=== PATIENT | female | born 1980 | race Asian ===

== ENCOUNTER 2019-03-25 07:25 | Inpatient (IN) | payer BC ==
[2019-03-25] MEDS: ELECTROLYTE-148 SOLN 1,000 ML IV SCH (07:40)
[2019-03-25 08:08] VITALS: BMI 26.9
[2019-03-25] MEDS ORDERED: CITRIC ACID/SODIUM CITRATE 30 ML UNIT-DOSE CUP PO ONE (08:13)
[2019-03-25] MEDS ORDERED: OXYTOCIN 20 UNITS in 0.9% NS 20 UNIT/1,000 ML INFUS.BAG IV ONE ×2 (09:10→10:38)
[2019-03-25] MEDS ORDERED: morphine SULFATE/PF 0.5 MG/ML (2cc Syringe - QUVA) ONE (09:14)
[2019-03-25] MEDS ORDERED: PHENYLEPHRINE HCL 10 MG/1 ML SINGLE DOSE VIAL ONE (09:14)
--- NOTE | 2019-03-25 09:15 | HP ---
Past Medical History - Primary Care Physician PCP:: Murtaza Giraldo - Admission Chief Complaint: 39 weeks ,previous c/s, sterlization History of Present Illness: 39 yo f 0 2 1 with previous c/s , requesting repeat c/s, risks associated with c/s discussed , cx CLP, vx -3 , mi , fhr cat 1.no contraction. also requesting BTL, aware procedure is permanent and has small failure risks and risks of ectopic. History Source: Patient Limitations to Obtaining History: No Limitations - Past Medical History ...: 4 ...Para: 2 ...Term: 2 ...: 0 ...Spon : 1 ...Induced : 0 ...LMP: 06/19/18 ... Weeks Gestation by Dates: 39.6 ...EDC by Dates: 03/26/19 ...EDC by Sono: 03/29/19 Endocrine: Yes: Diabetes Mellitus (GDM) - Past Surgical History Past Surgical History: Yes: None, Hx Myomectomy: No Hx Transabdominal Cerclage: No - Smoking History Smoking history: Never smoked Have you smoked in the past 12 months: No Aproximately how many cigarettes per day: 0 - Alcohol/Substance Use Hx Alcohol Use: No History of Substance Use: reports: None - Social History Usual Living Arrangement: Yes: With Spouse ADL: Independent Occupation: RN History of Recent Travel: No Home Medications - Allergies Allergies/Adverse Reactions: Allergies Allergy/AdvReac Type Severity Reaction Status Date / Time No Known Allergies Allergy Verified 03/25/19 08:10 - Home Medications Home Medications: Ambulatory Orders Vit/Iron Fum/Folic AC [ Tablet] 1 each PO DAILY 09/02/15 Review of Systems - Review of Systems Constitutional: reports: No Symptoms Eyes: reports: No Symptoms HENT: reports: No Symptoms Neck: reports: No Symptoms Cardiovascular: reports: No Symptoms Respiratory: reports: No Symptoms Gastrointestinal: reports: No Symptoms Genitourinary: reports: No Symptoms Breasts: reports: No Symptoms Reported Musculoskeletal: reports: No Symptoms Integumentary: reports: No Symptoms Neurological: reports: No Symptoms Endocrine: reports: No Symptoms Hematology/Lymphatic: reports: No Symptoms Psychiatric: reports: No Symptoms Physical Exam - Maternity Vital Signs: Vital Signs Temperature 98.3 F 03/25/19 07:25 Pulse Rate 86 03/25/19 07:25 Respiratory Rate 18 03/25/19 07:25 Blood Pressure 129/83 03/25/19 07:25 O2 Sat by Pulse Oximetry (%) Constitutional: Yes: Well Nourished, No Distress, Calm Eyes: Yes: WNL, Conjunctiva Clear, EOM Intact HENT: Yes: WNL, Atraumatic, Normocephalic Neck: Yes: WNL, Supple, Trachea Midline Cardiovascular: Yes: WNL, Regular Rate and Rhythm Breast(s): Yes: WNL - Abdominal Exam/OB Number of Fetuses: Single Presentation: Vertex Contractions: No Intensity: Unaware Monitor Mode: External Heart Rate Location: [facility] Category: I Accelerations: Non-Uniform Decelerations: None - Vaginal Exam/OB Vaginal Bleediing: No Speculum Exam: No Dilatation (cm): closed Effacement (%): 0 Amniotic Membrane Status: Intact Presentation: Vertex/Position Station: -3 - Physical Exam Musculoskeletal: Yes: WNL Extremities: Yes: WNL Edema: Yes Edema: LLE: Trace, RLE: Trace Deep Tendon Reflex Grade: Normal +2 Psychiatric: Yes: WNL Hemorrhage Risk Assessment - Risk Factors Medium Risk Factors: Yes: Prior , uterine surgery,or multiple laparotomies Risk Score: 1 Risk Level: Medium Risk Problem List - Problems (1) with 39 completed weeks gestation Code(s): Z3A.39 - 39 WEEKS GESTATION OF (2) Previous section complicating Code(s): O34.219 - MATERNAL CARE FOR UNSP TYPE SCAR FROM PREVIOUS DEL (3) Advanced maternal age (AMA) in Code(s): RAG4983 - (4) Sterilization Code(s): Z30.2 - ENCOUNTER FOR STERILIZATION Assessment/Plan admit for repeat c/s and BTL. risks discussed
[2019-03-25] MEDS ORDERED: ceFAZolin SODIUM 1 GM VIAL ONE ×2 (09:16)
[2019-03-25] MEDS ORDERED: ONDANSETRON 4 MG/2 ML VIAL IVPUSH PRN (09:29)
[2019-03-25] MEDS ORDERED: IBUPROFEN 600 MG TABLET (FP) PO PRN (09:29)
[2019-03-25] MEDS ORDERED: oxyCODONE HCL 5 MG TABLET PO PRN ×2 (10:23)
[2019-03-25] MEDS ORDERED: METHYLERGONOVINE MALEATE 0.2 MG/1 ML AMP IM PRN (10:23)
[2019-03-25] MEDS ORDERED: diphenhydrAMINE HCL 25 MG CAPSULE (FP) PO PRN (10:23)
[2019-03-25] MEDS ORDERED: BENZOCAINE 28 GM HEMORRHOIDAL OINTMENT PR PRN (10:23)
[2019-03-25] MEDS ORDERED: WITCH HAZEL 50% (TUCKS) 40 PAD/JAR PAD TP PRN (10:23)
[2019-03-25] MEDS ORDERED: BENZOCAINE 20% 57 GM BOTTLE TP PRN (10:23)
[2019-03-25] MEDS ORDERED: ACETAMINOPHEN 325 MG TABLET (FP) PO PRN (10:24)
--- NOTE | 2019-03-25 10:29 | OP ---
Operative Note - Note: Operative Date: 03/25/19 Pre-Operative Diagnosis: khushbu Operation: repeat LST c/s, BTL Findings: live baby girl 9/9 , ROT.clear fluid. Surgeon: Murtaza Giraldo Cremator: Yair Dillard Anesthesiologist/REGIONAL DIRECTOR OF ADMISSIONS: Sukhdeep Rock Anesthesia: Spinal Specimens Removed: placenta, portion Rt and LT tube Estimated Blood Loss (mls): 500 Drains & Tubes with Location: [place] Blood Volume Replaced (mls): 0 Operative Report Dictated: Yes
[2019-03-25] MEDS ORDERED: OXYTOCIN 20 UNITS in 0.9% NS 20 UNIT/1,000 ML INFUS.BAG IV SCH (10:30)
[2019-03-25] MEDS ORDERED: ACETAMINOPHEN 500 MG TABLET (FP) ONE (10:37)
[2019-03-25] MEDS: IBUPROFEN 800 MG/8 ML IJ IVPB PRN ×2 (14:17→21:55)
[2019-03-25] MEDS ORDERED: DEXTROSE 5%-LACTATED RINGERS 1,000 ML IV SCH (18:30)
--- NOTE | 2019-03-25 18:57 | OP ---
DATE OF OPERATION: 03/25/2019 PREOPERATIVE DIAGNOSIS: 39 weeks, previous section with request of repeat section and tubal ligation. POSTOPERATIVE DIAGNOSIS: 39 weeks, previous section with request of repeat section and tubal ligation. PROCEDURE: Repeat low segment transverse resection and bilateral tubal ligation. SURGEON: Murtaza Odom M.D. APPLICATIONS ARCHITECT: Roro Mccray ANESTHESIA: Spinal. ANESTHESIOLOGIST: Sukhdeep Rock M.D. ESTIMATED BLOOD LOSS: 500 mL. FINDINGS: A live baby girl, ROT position, Apgars 9 and 9, clear fluid. OPERATION: Patient was taken to operating room with adequate spinal anesthesia. Abdomen and perineum were prepped and draped. Pfannenstiel abdominal skin incision was made. Abdominal wall was cut layer by layer until the peritoneum was exposed and incised. Upon entering the abdominal cavity, the lower uterine segment was identified, and uterovesical fold of the peritoneum was established. The bladder was pushed down. A low transverse incision was made. Amniotic sac was entered. Clear fluid. Head delivered ROT position. Nasopharynx was suctioned. A live baby girl was delivered, Apgars 9 and 9. Placenta was delivered manually. Uterine cavity was cleared of all remaining tissue. Uterine incision was closed in 2 layers, the 1st layer with 0 Biosyn continuous suture, the 2nd layer with 0 Biosyn imbricating the 1st layer. Bladder flap was closed with 0 Biosyn continuous suture. Both tubes and ovaries were checked and were normal. Right tube was grasped with [place] clamps. Right tube was doubly tied with 2-0 plain. Portion of tube was removed, and endosalpinx was cauterized. The same procedure was repeated for opposite tube. No active bleeding was seen. All the lap, sponge, and instrument counts were correct. Pelvic cavity irrigated. And then the peritoneum was closed with 0 Biosyn continuous suture. Muscles were brought together with interrupted suture with 0 Biosyn. Fascia was closed with 0 Biosyn continuous sutures. Subcutaneous fat with interrupted sutures 0 Biosyn, and the skin was closed with 3-0 Vicryl subcuticular continuous suture. The patient tolerated the procedure well and left the OR in good condition. MURTAZA ODOM M.D. [id number]
[2019-03-25] MEDS: CEFAZOLIN 1 GM/D5W 1 GM/50 ML BAG IVPB SCH (19:28)
[2019-03-26] MEDS: CEFAZOLIN 1 GM/D5W 1 GM/50 ML BAG IVPB SCH (03:00)
[2019-03-26] MEDS: IBUPROFEN 800 MG/8 ML IJ IVPB PRN (05:22)
--- NOTE | 2019-03-26 07:35 | PN ---
Post Progress Note - Subjective Subjective: Patient without acute complaints. Reports tolerating oral intake without nausea or vomiting. Ambulating without dizziness. Denies fevers or chills. Pain well controlled with oral pain medication. without difficulty. Passing flatus. Post Day: 1 Type of Delivery: Repeat C/S Vital Signs: Vital Signs Temperature 98.3 F 03/26/19 04:00 Pulse Rate 90 03/26/19 04:00 Respiratory Rate 18 03/26/19 05:59 Blood Pressure 119/69 03/26/19 04:00 O2 Sat by Pulse Oximetry (%) 98 03/25/19 11:30 Breast Exam: Yes: Soft Uterus: Yes: Fundus Firm Incision: Yes: Dressing dry and intact Abdomen/GI: Yes: Abdomen soft, Abdominal Distention (mild soft), Tender (mild incisional), Passing flatus, Tolerating PO Lochia: Yes: Rubra Lochia, amount: Moderate Extremities: Yes: Calves non-tender, Edema (trace) Activity: Ambulating Assessment/Plan 39 yo POD # 1 s/p R CD + BTL, afebrile, vital signs stable, doing well 1. Continue routine postoperative care. 2. Follow up AM CBC 3. Rh positive status, no rhogam indicated. 4. Encourage ambulation and incentive spirometer use 5. Continue oral pain medication 6. Anticipate discharge home postoperative day #3 or #4
[2019-03-26 07:47] LABS: BASO % 0.5 % (0-2.0); EOS % 1.6 % (0-4.5); HEMATOCRIT 34.1 % (32.4-45.2); HEMOGLOBIN 11.5 GM/dL (10.7-15.3); LYMPH % 11.2 % (8-40); MCH 28.2 pg (25.7-33.7); MCHC 33.8 g/dl (32.0-36.0); MEAN CELL VOLUME 83.4 fl (80-96); MEAN PLT VOLUME 8.2 fl (7.5-11.1); MONO % 4.5 % (3.8-10.2); NEUT % 82.2 % (42.8-82.8); PLATELET COUNT 183 K/MM3 (134-434); RBC 4.09 M/mm3 (3.60-5.2); RDW 15.9 % (11.6-15.6); WHITE BLOOD COUNT 8.4 K/mm3 (4.0-10.0)
[2019-03-26] MEDS: ACETAMINOPHEN 325 MG TABLET (FP) PO PRN ×3 (09:43→20:29)
[2019-03-26] MEDS: ENOXAPARIN NA (PORCINE) 40 MG/0.4 ML DISP.SYRIN SQ SCH (09:43)
[2019-03-26] MEDS ORDERED: DIPHTH,PERTUSS(ACELL),TET 0.5 ML DISP.SYRIN IM ONE (10:00)
[2019-03-26] MEDS ORDERED: BISACODYL 10 MG SUPP.RECT RC PRN (10:23)
--- NOTE | 2019-03-26 12:23 | PN ---
Progress Note (short form) - Note Progress Note: POD 1 s/p under spinal anesthesia with duramorph. Doing well, no complaints, all questions answered.
[2019-03-26] MEDS: IBUPROFEN 600 MG TABLET (FP) PO PRN ×2 (13:21→20:30)
[2019-03-26] MEDS: SIMETHICONE 80 MG TAB.CHEW (FP) PO PRN (20:29)
[2019-03-27] MEDS: IBUPROFEN 600 MG TABLET (FP) PO PRN ×3 (05:30→21:04)
[2019-03-27] MEDS: SIMETHICONE 80 MG TAB.CHEW (FP) PO PRN ×3 (05:30→21:04)
[2019-03-27] MEDS: ACETAMINOPHEN 325 MG TABLET (FP) PO PRN ×3 (05:32→21:04)
--- NOTE | 2019-03-27 07:20 | PN ---
Progress Note (short form) - Note Progress Note: pod 2 s/p repeat c/s , no c/o , passing gas CBC, BMP 03/26/19 07:20 Last Vital Signs Temp Pulse Resp BP Pulse Ox 98.5 F 98 H 20 102/52 L 98 03/26/19 20:00 03/26/19 20:00 03/26/19 20:00 03/26/19 20:00 03/25/19 11:30 abdomen soft, no distension, no cva incision dry, clean no calf tenderness lochia mild plan ambulate , cbc in am pain management Problem List - Problems (1) with 39 completed weeks gestation Code(s): Z3A.39 - 39 WEEKS GESTATION OF (2) Previous section complicating Code(s): O34.219 - MATERNAL CARE FOR UNSP TYPE SCAR FROM PREVIOUS DEL (3) Advanced maternal age (AMA) in Code(s): LSK0313 - (4) Sterilization Code(s): Z30.2 - ENCOUNTER FOR STERILIZATION
[2019-03-27] MEDS: ENOXAPARIN NA (PORCINE) 40 MG/0.4 ML DISP.SYRIN SQ SCH (09:57)
[2019-03-27] MEDS ORDERED: SENNOSIDES/DOCUSATE COMBO (SENNA PLUS) TABLET (UD) PO PRN (22:00)
[2019-03-28] MEDS: IBUPROFEN 600 MG TABLET (FP) PO PRN ×3 (05:29→16:14)
[2019-03-28 08:39] LABS: BASO % 0.4 % (0-2.0); EOS % 3.7 % (0-4.5); HEMATOCRIT 35.4 % (32.4-45.2); HEMOGLOBIN 11.7 GM/dL (10.7-15.3); LYMPH % 16.6 % (8-40); MCH 28.2 pg (25.7-33.7); MCHC 33.1 g/dl (32.0-36.0); MEAN CELL VOLUME 85.1 fl (80-96); MONO % 3.6 % (3.8-10.2); NEUT % 75.7 % (42.8-82.8); PLATELET COUNT 238 K/MM3 (134-434); RBC 4.16 M/mm3 (3.60-5.2); RDW 15.6 % (11.6-15.6); WHITE BLOOD COUNT 9.1 K/mm3 (4.0-10.0)
--- NOTE | 2019-03-28 09:54 | PN ---
Post Progress Note - Subjective Subjective: Patient without acute complaints. Reports tolerating oral intake without nausea or vomiting. Ambulating without dizziness. Denies fevers or chills. Pain well controlled with oral pain medication. Pumping/breast feeding without issue. Passing flatus. Post Day: 3 Type of Delivery: Repeat C/S Vital Signs: Vital Signs Temperature 98.0 F 03/27/19 22:00 Pulse Rate 88 03/27/19 22:00 Respiratory Rate 18 03/27/19 22:00 Blood Pressure 119/69 03/27/19 22:00 O2 Sat by Pulse Oximetry (%) 98 03/25/19 11:30 Breast Exam: Yes: Soft Uterus: Yes: Fundus Firm, Fundus below umbilicus Incision: Yes: Sutures intact, Other (clean and dry) Abdomen/GI: Yes: Abdomen soft, Passing flatus, Tolerating PO Lochia: Yes: Rubra Lochia, amount: Small Extremities: Yes: Calves non-tender Perineum: Yes: Intact Activity: Ambulating - Labs Labs: CBC WBC 9.1 K/mm3 (4.0-10.0) 03/28/19 08:00 RBC 4.16 M/mm3 (3.60-5.2) 03/28/19 08:00 Hgb 11.7 GM/dL (10.7-15.3) 03/28/19 08:00 Hct 35.4 % (32.4-45.2) 03/28/19 08:00 MCV 85.1 fl (80-96) 03/28/19 08:00 MCH 28.2 pg (25.7-33.7) 03/28/19 08:00 MCHC 33.1 g/dl (32.0-36.0) 03/28/19 08:00 RDW 15.6 % (11.6-15.6) 03/28/19 08:00 Plt Count 238 K/MM3 (134-434) D 03/28/19 08:00 MPV 8.0 fl (7.5-11.1) 03/28/19 08:00 Absolute Neuts (auto) 6.9 K/mm3 (1.5-8.0) 03/28/19 08:00 Neutrophils % 75.7 % (42.8-82.8) 03/28/19 08:00 Lymphocytes % 16.6 % (8-40) D 03/28/19 08:00 Monocytes % 3.6 % (3.8-10.2) L 03/28/19 08:00 Eosinophils % 3.7 % (0-4.5) D 03/28/19 08:00 Basophils % 0.4 % (0-2.0) 03/28/19 08:00 Nucleated RBC % 0 % (0-0) 03/28/19 08:00 Assessment/Plan 39yo P3 s/p repeat LT C/S, doing well stable, afebrile. care instructions reviewed. Continue routine postop care. Ambulation encouraged.
--- NOTE | 2019-03-28 09:58 | DS ---
Physical Exam-SYSTEMS DEVELOPER Vital Signs: Vital Signs Temperature 98.0 F 03/27/19 22:00 Pulse Rate 88 03/27/19 22:00 Respiratory Rate 18 03/27/19 22:00 Blood Pressure 119/69 03/27/19 22:00 O2 Sat by Pulse Oximetry (%) 98 03/25/19 11:30 Constitutional: Yes: Well Nourished, No Distress, Calm Eyes: Yes: WNL, Conjunctiva Clear HENT: Yes: WNL, Atraumatic, Normocephalic Neck: Yes: WNL, Supple, Trachea Midline Cardiovascular: Yes: WNL, Regular Rate and Rhythm Respiratory: Yes: WNL, Regular, CTA Bilaterally Gastrointestinal: Yes: WNL, Normal Bowel Sounds, Soft ...Rectal Exam: Yes: Deferred Renal/: Yes: WNL External Genitalia: Yes: Normal ....Post : Yes: Uterus firm, Uterus non-tender, Slight lochia rubra Breast(s): Yes: WNL Musculoskeletal: Yes: WNL Extremities: Yes: WNL Edema: No Integumentary: Yes: WNL Wound/Incision: Yes: Clean/Dry, Well Approximated, Sutures Intact Neurological: Yes: WNL, Alert, Oriented ...Motor Strength: WNL Psychiatric: Yes: WNL, Alert, Oriented Labs: CBC, BMP 03/28/19 08:00 Delivery - Delivery Section: Repeat, Low Flap Transverse Type of Anesthesia: Spinal Episiotomy/Laceration: None EBL (cc): 500 Delivery, Single - Stages of Labor Date of Delivery: 03/25/19 Time of Delivery: 09:42 Time Placenta Delivered: 09:43 Placenta: Yes: Manual Removal, Normal Configuration - Condition of Food Service Team Member/Agronomy Professor Present: Yes Name: Alicia Wheatley Gender: Female Weight: 3.062 kg Position: Right, OT Total Hours ROM (Hrs/Mins): 2 minutes - 1 Minute Total Score: 9 5 Minutes Total Score: 9 - Butler Feeding Plan Initial Plan: Exclusive throughout hospitalization Benefits of Exclusively reinforced: Yes Discharge Summary Problems reviewed: Yes Reason For Visit: C SECTION Current Active Problems Advanced maternal age (AMA) in (Acute) with 39 completed weeks gestation (Acute) Previous section complicating (Acute) Sterilization (Acute) Procedures: Principal: Repeat LT C/S Hospital Course: Normal postop recovery Plan of Treatment: Postop and care Condition: Good - Instructions Diet, Activity, Other Instructions: Physical activity Resume your normal everyday activity as tolerated no heavy lifting or exercise until seen by your surgeon. You may walk unlimited vamshi of and climb stairs. You may resume driving the car when you feel safe and comfortable behind the wheel. No sexual activity as instructed. Wound care If you have a bandage, leave it on, and keep dry for 48-72 hours. After that time discard the outer bandage. If they are tapes on the skin under the out of bandage leave them in place. They will peel off in the next 7 to 10 days. Do Not Peel them off. You may shower the day after surgery. If there are tapes present on the skin, you may shower over them. Diet There are no dietary restrictions. Eat healthy, high-fiber foods. Drink 6 to 8 glasses of liquid each day. This will assist in keeping your bowels are regular. Pain management You may take Tylenol or acetaminophen or Ibuprofen (for example, Motrin, Advil etc.) from my pain prescription medication is ordered should be taken as prescribed for moderate to severe pain. Call MD for any of the following: Severe pain not relieved by medication Fever of 101 or higher Excessive bleeding or drainage on dressing Inability to urinate Referrals: Murtaza Giraldo MD [Staff Physician] - Disposition: HOME - Home Medications Comprehensive Discharge Medication List: Ambulatory Orders Vit/Iron Fum/Folic AC [ Tablet] 1 each PO DAILY 09/02/15 Prescription Drug Monitoring Program (I-STOP) results: I-STOP not reviewed
[2019-03-28] MEDS: ACETAMINOPHEN 325 MG TABLET (FP) PO PRN ×2 (10:30→16:13)
[2019-03-28] MEDS: ENOXAPARIN NA (PORCINE) 40 MG/0.4 ML DISP.SYRIN SQ SCH (10:39)
[2019-03-28] MEDS ORDERED: HYDROCORTISONE 1% TOPICAL OINT 30 GM TUBE TP PRN (11:45)
[2019-03-28] MEDS: ELECTROLYTE-148 SOLN 1,000 ML IV SCH (13:30)
[2019-03-28 13:38] VITALS: BP 124/63; PULSE 89; TEMP 98.1
[2019-03-28 14:05] LABS: ANISOCYTOSIS 1+; MACROCYTOSIS 0; OVALOCYTE 1+; PLATELET ESTIMATE NORMAL; TEAR DROP CELLS 1+
[2019-03-28] MEDS: SIMETHICONE 80 MG TAB.CHEW (FP) PO PRN (16:14)
--- NOTE | 2019-04-01 18:59 | PATH ---
Surgical Pathology Report Patient Name: RANDY HAND [facility]. Rec. #: [id number] /Age/Gender: 1980 (Age: 39) / F Account: [id number] Location: [facility] OBS/HEALTH OUTREACH WORKER Taken: 03/25/2019 Received: 03/26/2019 Reported: 04/01/2019 Physicians: Murtaza Giraldo M.D. Specimen(s) Received A: PLACENTA B: FALLOPIAN TUBE PORTION LEFT C: FALLOPIAN TUBE PORTION RIGHT Clinical History 39.3 weeks, , 2010, 2015, SPAB x1, GDM-diet controlled Final Diagnosis A. PLACENTA: THIRD TRIMESTER PLACENTA. TRIVASCULAR CORD. MEMBRANES WITH NO DIAGNOSTIC ABNORMALITIES. B. LEFT PORTION OF FALLOPIAN TUBE, RESECTION: COMPLETE CROSS SECTION OF THE FALLOPIAN TUBE LUMEN IDENTIFIED. C. RIGHT PORTION OF FALLOPIAN TUBE, RESECTION:: COMPLETE CROSS SECTION OF THE FALLOPIAN TUBE LUMEN IDENTIFIED. Electronically Signed rFanky Benavides M.D. Gross Description A. The specimen is received fresh labeled placenta and is a 480 gram, 16.0 x 13.5 x 3.0 cm. placenta with attached membranes and umbilical cord. The attached membranes are chavez, translucent with focal opacities and insert marginally. The umbilical cord measures 26 cm. in length and averages 1.1 cm. in diameter. The cord inserts eccentrically, 4 cm. to the nearest margin. No true knots or strictures are identified. Cut surface of the umbilical cord reveals 3 vessels. The surface is gunn-blue with minimal fibrin deposition and appropriate caliber vessels. The maternal surface is red-brown with focal defects. Sectioning reveals red-brown, spongy parenchyma. No lesions are identified. Glass Block Bender sections are submitted in three cassettes as follows: 1- membrane rolls and umbilical cord; 2-3- full thickness sections of placenta. B. Received in formalin labeled "fallopian tube portion left," is a 1.5 cm in length portion of fallopian tube. No fimbria are present. The outer surface is chavez-brumfield and smooth. Sectioning reveals unremarkable lumen. Glass Block Bender sections are submitted in one cassette. C. Received in formalin labeled "portion of fallopian tube right," is a 1.0 cm in length portion of fallopian tube. The outer surface is chavez-brumfield and smooth. No fimbria are present. Sectioning reveals an unremarkable lumen. Glass Block Bender sections are submitted in one cassette. 03/31/2019 saudi03/31/2019
== END 2019-03-28 19:20 | disposition home or self-care (01) | DRG 785 ==
LOC: JLDR 07:25 → J3W 12:40
PROVIDERS: ADMIT Obstetrics & Gynecology; ATTEND Obstetrics & Gynecology
PROC: 10D00Z1 Extraction of Products of Conception, Low, Open Approach (ICD-10-PCS; principal; 2019-03-25)
PROC: 0UL70ZZ Occlusion of Bilateral Fallopian Tubes, Open Approach (ICD-10-PCS; 2019-03-25)
DX: O34.219 Maternal care for unspecified type scar from previous cesarean delivery (principal); Z3A.39 39 weeks gestation of pregnancy; Z37.0 Single live birth; Z30.2 Encounter for sterilization
CPT/HCPCS: 36415; 82962; 85025; 88302-TC; 88307-TC; 90715

== ENCOUNTER 2021-07-15 18:12 | Emergency (ER) | payer BC ==
[2021-07-15 18:45] VITALS: TEMP 98.6; BMI 22.6
[2021-07-15 20:32] LABS: BASO % 0.6 % (0-2.0); HEMATOCRIT 35.9 % (32.4-45.2); HEMOGLOBIN 11.9 GM/dL (10.7-15.3); LYMPH % 25.6 % (8-40); MCH 26.4 pg (25.7-33.7); MCHC 33.2 g/dl (32.0-36.0); MEAN CELL VOLUME 79.3 fl (80-96); MEAN PLT VOLUME 7.3 fl (7.5-11.1); MONO % 6.9 % (3.8-10.2); NEUT % 60.9 % (42.8-82.8); PLATELET COUNT 286 10^3/uL (134-434); RBC 4.53 M/mm3 (3.60-5.2); RDW 15.4 % (11.6-15.6); WHITE BLOOD COUNT 6.7 K/mm3 (4.0-10.0)
[2021-07-15 20:51] LABS: CALCIUM 9.4 mg/dL (8.5-10.1)
[2021-07-15 20:52] LABS: ALBUMIN 3.8 g/dl (3.4-5.0); BLOOD UREA NITROGEN 11.2 mg/dL (7-18); MAGNESIUM 2.3 mg/dL (1.8-2.4)
[2021-07-15 20:55] LABS: CREATININE 0.7 mg/dL (0.55-1.3)
[2021-07-15 20:56] LABS: BILIRUBIN,TOTAL 0.7 mg/dL (0.2-1); TOT PROT 7.3 g/dl (6.4-8.2)
[2021-07-15 23:37] VITALS: BP 145/82; PULSE 83
== END 2021-07-15 23:37 | disposition home or self-care (01) ==
LOC: JER 18:12
DX: R07.9 Chest pain, unspecified (principal); R42 Dizziness and giddiness
CPT/HCPCS: 36415; 71275-TC; 80053; 82550; 83735; 84484; 85025; 93005; 93010; 99284-25; Q9967